=== PATIENT | male | born 1990 | race Hispanic/Latino ===

== ENCOUNTER 2017-12-29 18:38 | Emergency (ER) | payer SELFPAY ==
--- NOTE | 2017-12-29 19:43 | RAD ---
CHEST TWO VIEWS: Comparison: 09-11-05 History: Cough. FINDINGS: Persistent opacification of the right hemithorax with rightward deviation of the cardiomediastinal si lhouette suggesting volume loss. Stable hyperinflation of the left lung. No consolidation left lung. No pneumothorax. IMPRESSION: No significant interval change. No acute cardiopulmonary process. Chronic lung volume loss in the rig ht hemithorax. POS: H
[2017-12-29] MEDS ORDERED: Dexamethasone 4 MG TAB ONE (19:49)
[2017-12-29] MEDS ORDERED: Dexamethasone 4 mg/ml Vial ONE (19:51)
[2017-12-29] MEDS ORDERED: Dexamethasone 10 MG/ML VIAL FS SCH (20:00)
== END 2017-12-29 20:52 | disposition home or self-care (01) ==
LOC: ERS 18:38
DX: J45.901 Unspecified asthma with (acute) exacerbation (principal)
CPT/HCPCS: 71046; J1100; J7620; J8540